=== PATIENT | male | born 1945 | race Caucasian/White ===

== ENCOUNTER 2018-07-31 10:14 | Emergency (ER) | payer MEDICARE, OTHER ==
[2018-07-31 10:30] VITALS: BMI 26.1
[2018-07-31 10:32] VITALS: TEMP 97.5; O2SAT 98
[2018-07-31 11:45] LABS: SQUAMOUS EPITHIAL 1 /hpf (0-5); URINE BILIRUBIN NEGATIVE (NEGATIVE); URINE BLOOD NEGATIVE (NEGATIVE); URINE CLARITY Clear (Clear); URINE COLOR Yellow (YELLOW); URINE GLUCOSE (UA) NORMAL (Normal); URINE LEUKOCYTE ESTERASE NEG Leu/uL (Negative); URINE PROTEIN NEGATIVE (NEGATIVE); URINE UROBILINOGEN NORMAL mg/dL (0.2-1.0)
[2018-07-31 11:48] LABS: BASO # 0.1 K/uL (0.0-0.2); BASO % 1.3 % (0.0-2.0); EOS # 0.2 K/uL (0.0-0.7); EOS % 3.6 % (0.0-4.0); HEMOGLOBIN 13.8 g/dL (12.0-18.0); LYMPH # 1.8 K/uL (1.0-4.3); MEAN CELL VOLUME 88.2 fL (80.0-94.0); MEAN CORPUSCULAR HEMOGLOBIN 29.5 pg (27.0-31.0); MEAN CORPUSCULAR HGB CONC 33.4 g/dL (33.0-37.0); MEAN PLATELET VOLUME 8.7 fL (7.2-11.7); MONO # 0.6 K/uL (0.0-0.8); MONO % 13.5 % (0.0-10.0); NEUT # 1.6 K/uL (1.8-7.0); NEUT % 38.6 % (50.0-75.0); NRBC % 0.1 % (0.0-2.0); RBC 4.69 Mil/uL (4.40-5.90); WHITE BLOOD COUNT 4.2 K/uL (4.8-10.8)
--- NOTE | 2018-07-31 11:55 | C.PDOC ---
History Of Present Illness 72 year old male presents to the ED with complaints of rectal pain, ongoing for over 10 days. He also notes severe pain with bowel movements, which prompted todays visit. Patient also states when he wipes, he sees blood. Otherwise p atient denies any fever, chills, abdominal pain, vomiting, diarrhea, or other associated symptoms. <Kim Jiménez - Last Filed: 07/31/18 17:11> History Per: Patient History/Exam Limitations: no limitations Onset/Duration Of Symptoms: Days (> 10) Current Symptoms Are (Timing): Still Present Location Of Pain/Discomfort: Other (rectal) Radiation Of Pain To:: None Exacerbating Factors: Other (BMs) Recent travel outside of the [place]: No <Kim Jiménez - Last Filed: 07/31/18 17:11> <Araceli Toney - Last Filed: 08/03/18 05:25> Time Seen by Provider: 07/31/18 11:01 Chief Complaint (Nursing): GI Problem Past Medical History Reviewed: Historical Data, Nursing Documentation, Vital Signs Vital Signs: Last Vital Signs Temp 97.5 F L 07/31/18 10:31 Pulse 76 07/31/18 10:31 Resp 18 07/31/18 10:31 BP 131/77 07/31/18 10:31 Pulse Ox 98 07/31/18 10:31 - Medical History PMH: GERD, HTN, Hyperlipidemia Other Surgeries: Left eye surgery Family History: States: No Known Family Hx - Social History Hx Alcohol Use: No Hx Substance Use: No - Immunization History Hx Influenza Vaccination: Yes (06/2018) <Kim Jiménez - Last Filed: 07/31/18 17:11> Vital Signs: Last Vital Signs Temp 97.5 F L 07/31/18 10:31 Pulse 77 07/31/18 13:01 Resp 20 07/31/18 13:01 BP 125/75 07/31/18 13:01 Pulse Ox 98 07/31/18 17:13 <Araceli Toney - Last Filed: 08/03/18 05:25> Review Of Systems Except As Marked, All Systems Reviewed And Found Negative. Constitutional: Negative for: Fever, Chills Gastrointestinal: Positive for: Rectal Pain, Other (Pain on bowel movement, +blood when wiping). Negative for: Vomiting, Abdominal Pain, Diarrhea Genitourinary: Negative for: Dysuria, Frequency, Hematuria <Kim Jiménez - Last Filed: 07/31/18 17:11> Physical Exam - Physical Exam Appears: Non-toxic, No Acute Distress Skin: Normal Color, Warm, Dry Head: Atraumatic, Normacephalic Eye(s): bilateral: Normal Inspection Neck: Normal ROM Chest: Symmetrical Cardiovascular: Rhythm Regular, No Murmur Respiratory: Normal Breath Sounds, No Accessory Muscle Use Gastrointestinal/Abdominal: Soft, No Tenderness, No Guarding, No Rebound Rectal: No Hemorrhoids (none externally), Tenderness (around rectal area) Extremity: Normal ROM Extremity: Bilateral: Atraumatic, Normal Color And Temperature, Normal ROM Neurological/Psych: Oriented x3, Normal Speech <Kim Jiménez - Last Filed: 07/31/18 17:11> ED Course And Treatment - Laboratory Results Result Diagrams: 07/31/18 11:44 07/31/18 11:44 Lab Interpretation: Normal O2 Sat by Pulse Oximetry: 98 (RA) Pulse Ox Interpretation: Normal - CT Scan/US No standard instances Other Rad Studies (CT/US): Read By Radiologist, Radiology Report Reviewed CT/US Interpretation: FINDINGS: LOWER THORAX: Unremarkable. LIVER: Unremarkable. No gross lesion or ductal dilatation. GALLBLADDER AND BILE DUCTS: Unremarkable. PANCREAS: Unremarkable. No gross lesion or ductal dilatation. SPLEEN: Unremarkable. ADRENALS: Unremarkable. No mass. KIDNEYS AND URETERS: Unremarkable. No hydronephrosis. No solid mass. VASCULATURE: Unremarkable. No aortic aneurysm. BOWEL: Diverticulosis of the transverse colon and distal descending/sigmoid colon. No evidence of diverticulitis. Mild mural thickening of the inferior rectum with relatively low attenuation within the wall suggestive of prior episodes of inflammatory bowel disease. Please correlate historically. No evidence of neoplasm. APPENDIX: Normal appendix. PERITONEUM: Unremarkable. No free fluid. No free air. LYMPH NODES: No frankly enlarged nodes. Shotty subcentimeter nodes are seen in the small bowel mesentery, retroperitoneum and medial to the cecum/ascending colon. Findings consistent with nonspecific mesenteric adenitis. BLADDER: Unremarkable. REPRODUCTIVE: Normal prostate. BONES: No acute fracture. OTHER FINDINGS: None. IMPRESSION: Findings consistent with nonspecific mesenteric adenitis. Mild thickening of the inferior rectum with relative low attenuation centrally within the wall suggests possible prior episode of inflammatory bowel disease. Correlate clinically. No other significant abnormality. Progress Note: re-evaluation abdomen soft in no distress Reassessment Condition: Improved <Kim Jiménez Juliette - Last Filed: 07/31/18 17:11> - Laboratory Results Result Diagrams: 07/31/18 11:44 07/31/18 11:44 <Araceli Toney - Last Filed: 08/03/18 05:25> Medical Decision Making Medical Decision Making: Impression: 72 year old with rectal pain, r/o perirectal fissure or abscess Plan: --CMP --Lipase --CBC --Urinalysis --CT Abdomen/Pelvis with IV contrast --Reassess and disposition <Kim Jiménez - Last Filed: 07/31/18 17:11> Disposition Counseled Patient/Family Regarding: Studies Performed, Diagnosis, Need For Followup, Rx Given - Disposition Disposition Time: 14:40 - POA Present On Arrival: None <Kim Jiménez - Last Filed: 07/31/18 17:11> <Araceli Toney A - Last Filed: 08/03/18 05:25> - Disposition Referrals: Samina Villalta MD [Staff Provider] - Disposition: HOME/ ROUTINE Condition: STABLE Additional Instructions: Follow up with your PMD for further evaluation Prescriptions: Hard Fat/Phenylephrine Angora [Anusol Suppository] 1 sup RC DAILY PRN #[id number] sup PRN Reason: Hemorrhoids Instructions: Hemorrhoids (DC) Forms: [facility] (Welsh) - Clinical Impression Clinical Impression: Hemorrhoids - PA / [employer]GOT [employer] OPERATOR / Resident Statement MD/DO has reviewed & agrees with the documentation as recorded. - Scribe Statement The provider has reviewed the documentation as recorded by the Scribe (Clotilde Nagel) All medical record entries made by the Scribe were at my direction and personally dictated by me. I have reviewed the chart and agree that the record accurately reflects my personal performance of the history, physical exam, medical decision making, and the department course for this patient. I have also personally directed, reviewed, and agree with the discharge instructions and disposition. <Kim Jiménez - Last Filed: 07/31/18 17:11> - PA / [employer]GOT [employer] OPERATOR / Resident Statement MD/DO has reviewed & agrees with the documentation as recorded. <Araceli Toney - Last Filed: 08/03/18 05:25>
[2018-07-31 12:01] LABS: ALB/GLOB RATIO 1.2 (1.0-2.1); ALBUMIN 3.6 g/dL (3.5-5.0); ALT/SGPT 40 U/L (21-72); AST/SGOT 25 U/L (17-59); BLOOD UREA NITROGEN 16 mg/dL (9-20); CALCIUM 9.2 mg/dl (8.6-10.4); GFR NON-AFRICAN AMERICAN > 60; LIPASE 42 U/L (23-300)
[2018-07-31 13:02] VITALS: BP 125/75; PULSE 77; RESP 20
--- NOTE | 2018-07-31 14:15 | CT ---
Date of service: 07/31/2018 PROCEDURE: CT Abdomen and Pelvis with contrast HISTORY: rectal pain COMPARISON: Not available TECHNIQUE: Contrast dose: 100 mL Visipaque 320 Radiation dose: Total exam DLP = 366.20 mGy-cm. This CT exam was performed using one or more of the following dose reduction techniques: Automated exposure control, adjustment of the mA and/or kV according to patient size, and/or use of iterative reconstruction technique. FINDINGS: LOWER THORAX: Unremarkable. LIVER: Unremarkable. No gross lesion or ductal dilatation. GALLBLADDER AND BILE DUCTS: Unremarkable. PANCREAS: Unremarkable. No gross lesion or ductal dilatation. SPLEEN: Unremarkable. ADRENALS: Unremarkable. No mass. KIDNEYS AND URETERS: Unremarkable. No hydronephrosis. No solid mass. VASCULATURE: Unremarkable. No aortic aneurysm. BOWEL: Diverticulosis of the transverse colon and distal descending/sigmoid colon. No evidence of diverticulitis. Mild mural thickening of the inferior rectum with relatively low attenuation within the wall suggestive of prior episodes of inflammatory bowel disease. Please correlate historically. No evidence of neoplasm. APPENDIX: Normal appendix. PERITONEUM: Unremarkable. No free fluid. No free air. LYMPH NODES: No frankly enlarged nodes. Shotty subcentimeter nodes are seen in the small bowel mesentery, retroperitoneum and medial to the cecum/ascending colon. Findings consistent with nonspecific mesenteric adenitis. BLADDER: Unremarkable. REPRODUCTIVE: Normal prostate BONES: No acute fracture. OTHER FINDINGS: None. IMPRESSION: Findings consistent with nonspecific mesenteric adenitis. Mild thickening of the inferior rectum with relative low attenuation centrally within the wall suggests possible prior episode of inflammatory bowel disease. Correlate clinically. No other significant abnormality.
== END 2018-07-31 15:16 | disposition home or self-care (01) ==
LOC: C.ER 10:14
DX: K64.9 Unspecified hemorrhoids (principal)